=== PATIENT | male | born 1935 | race Caucasian/White ===

== ENCOUNTER 2024-06-02 13:04 | Observation (INO) | payer MEDICARE, MEDICAID ==
[~2024-06-02] VITALS: Ht 170.2 cm; Wt 76.7 kg
[2024-06-02] VITALS (13 sets, daily range): BP systolic 119–156; BP diastolic 56–84; PULSE 63–80; RESP 15–18; TEMP 96.8–97.9; O2SAT 96–99
[2024-06-02] MEDS: cefazolin 2gm/D5W 100mL 100 ML IV ONE (05:30)
[~2024-06-02 13:04] MED LIST: ATOR40TA PO; GABA-532 PO; HYDR12.5 PO; LANTUS SQ; METF-438 PO
[2024-06-02] MEDS: famotidine 20mg tablet PO ONE (13:40)
[2024-06-02] MEDS: ringers solution, lacted 1,000 ML IV SCH ×2 (13:41→19:00)
[2024-06-02 14:42] LABS: APTT 27 SECONDS (22-32); INR 1.1 INR
[2024-06-02] MEDS ORDERED: meperidine/PF 25mg/ml syringe IV PRN ×3 (14:55)
[2024-06-02] MEDS ORDERED: acetaminophen 1,000mg/100ml IV 100 ML IV ONE (14:55)
[2024-06-02] MEDS ORDERED: morphine 2 MG/ML inj. syringe IV PRN (14:55)
[2024-06-02] MEDS ORDERED: proCHLORperazine 10 MG/2 ml inj IV PRN (14:55)
[2024-06-02] MEDS ORDERED: labetalol 20mg/4ml (5mg/ml) syringe IV PRN (14:55)
[2024-06-02] MEDS ORDERED: hydrALAZINE 20mg/ml inj. IV PRN (14:55)
[2024-06-02] MEDS ORDERED: ondansetron/PF 4mg/2ml inj IV PRN ×2 (14:55→18:45)
[2024-06-02] MEDS ORDERED: ceFAZolin 1000mg inj ONE (16:19)
[2024-06-02] MEDS ORDERED: LIDOcaine 1% 30ml preserv. free vial ONE (16:19)
[2024-06-02] MEDS ORDERED: BUPIVAcaine/PF 2.5mg/ml (0.25%) 10ml vial ONE (16:20)
[2024-06-02] MEDS ORDERED: sevoflurane 250ml liquid IH ONE (17:38)
[2024-06-02] MEDS ORDERED: fentaNYL/PF 50MCG/1 ML 2ML syringe ONE (17:42)
[2024-06-02] MEDS ORDERED: 0.9 % SODIUM CHLORIDE 10 ML VIAL ONE (18:03)
[2024-06-02] MEDS ORDERED: ePHEDrine 50MG/ML INJ. ONE (18:03)
[2024-06-02] MEDS ORDERED: propofol inj 20 ML IV ONE (18:03)
[2024-06-02] MEDS ORDERED: LIDOcaine 2% (20mg/ml) 5ml vial ONE (18:03)
[2024-06-02] MEDS ORDERED: ondansetron/PF 4mg/2ml inj ONE (18:05)
[2024-06-02] MEDS: BUPIVAcaine/PF 2.5mg/ml (0.25%) 10ml vial IJ ONE (18:22)
[2024-06-02] MEDS ORDERED: naloxone 0.4 mg/ml inj IV PRN (18:45)
[2024-06-02] MEDS: HYDROcodone/acetaminophen 10/325mg tab PO PRN (21:31)
[2024-06-02] MEDS: ceFAZolin 1GM/D5W- ADD-VANTAGE 50 ML IV SCH (23:33)
[2024-06-03] VITALS: BP 122/68; PULSE 67; TEMP 97.4; O2SAT 97
[2024-06-03 01:00] VITALS: BP 127/70
[2024-06-03 02:00] VITALS: BP 137/69; PULSE 66; TEMP 97.9; O2SAT 97
[2024-06-03 07:19] VITALS: BP 132/65
== END 2024-06-03 10:52 | disposition home or self-care (01) ==
LOC: PAS 13:04 → PCU 3S 18:48
PROVIDERS: ADMIT Surgery; ATTEND Surgery
DX: T82.111A Breakdown (mechanical) of cardiac pulse generator (battery), initial encounter (principal); I25.10 Atherosclerotic heart disease of native coronary artery without angina pectoris; I49.5 Sick sinus syndrome; I10 Essential (primary) hypertension; E78.5 Hyperlipidemia, unspecified; E11.40 Type 2 diabetes mellitus with diabetic neuropathy, unspecified; Z79.899 Other long term (current) drug therapy; Z86.2 Personal history of diseases of the blood and blood-forming organs and certain disorders involving the immune mechanism; Y92.89 Other specified places as the place of occurrence of the external cause
CPT/HCPCS: 33263; 82948; 85610; 85730; 86885; 86900; 86901; 93005; 96365; A4215; A4618; A7000; C1785; C1882; G0378; J0690; J3490; J7120; 36415; 71045; A6258; J2405; J2704; J3010; J7030; J7040